=== PATIENT | female | born 1975 | race Caucasian/White ===

== ENCOUNTER 2016-11-27 21:34 | Emergency (ER) | payer OTHER ==
[~2016-11-27] VITALS: Ht 160 cm; Wt 68.0 kg
[2016-11-27 21:52] VITALS: BP 104/70
[2016-11-27] MEDS ORDERED: AMOX500C PO (22:30)
--- NOTE | 2016-11-27 22:31 | PHYS DOC ---
Past Medical History Past Medical History: Unknown Past Surgical History: Other Additional Past Surgical Histo: UNKNOWN Alcohol Use: Heavy Drug Use: Methamphetamine Adult General Chief Complaint Chief Complaint: DENTAL PROBLEM HPI HPI Patient is a 41 year old female presents to the emergency department with a history of upper dental pain along the gum line for the last 2 days. Patient states she has called a dentist and has an appointment for Saturday. Patient states she has been taking aleve with minimal relief. Patient states she has pain on the right side of her jaw and neck area. Denies fever, chill, nausea and vomiting. Review of Systems Review of Systems Constitutional: Denies fever or chills [] Eyes: Denies change in visual acuity, redness, or eye pain [] HENT: Denies nasal congestion or sore throat. C/o dental pain Respiratory: Denies cough or shortness of breath [] Cardiovascular: No additional information not addressed in HPI [] GI: Denies abdominal pain, nausea, vomiting, bloody stools or diarrhea [] : Denies dysuria or hematuria [] Musculoskeletal: Denies back pain or joint pain [] Integument: Denies rash or skin lesions [] Neurologic: Denies headache, focal weakness or sensory changes [] Endocrine: Denies polyuria or polydipsia [] Allergies Allergies Allergies Coded Allergies Type Severity Reaction Last Updated Verified No Known Drug Allergies 03/09/16 No Physical Exam Physical Exam Constitutional: Well developed, well nourished, no acute distress, non-toxic appearance. [] HENT: Normocephalic, atraumatic, bilateral external ears normal, oropharynx moist, no oral exudates, nose normal. Bilateral TM normal, Throat with redness noted no erythema no exudate noted no uvla deviation noted. Patient with redness and inflammation noted to the #1 area patient was noted to have teeth on the lower right jaw that appears flat. No drainage or discharge noted. Eyes: PERRLA, EOMI, conjunctiva normal, no discharge. [] Neck: Normal range of motion, no tenderness, supple, no stridor. Cardiovascular:Heart rate regular rhythm, no murmur [] Lungs & Thorax: Bilateral breath sounds clear to auscultation [] Skin: Warm, dry, no erythema, no rash. [] Back: No tenderness Extremities: No tenderness, no cyanosis, no clubbing, ROM intact, no edema. [] Neurologic: Alert and oriented X 3, normal motor function, normal sensory function, no focal deficits noted. [] Psychologic: Affect normal, judgement normal, mood normal. [] EKG EKG [] Radiology/Procedures Radiology/Procedures [] Course & Med Decision Making Course & Med Decision Making Pertinent Labs and Imaging studies reviewed. (See chart for details) She was recommended to use warm salt water mouth rinses 4 to she'll be provided with amoxicillin 4 times a day for the next 10 days. Recommended Aleve for pain and discomfort. Recommended her to keep her appointment which she has on Saturday. Patient agrees with discharge instructions treatment regimens and follow-up recommendations. Signs and symptoms to return back to emergency department as been provided. [] Dragon Disclaimer Dragon Disclaimer This electronic medical record was generated, in whole or in part, using a voice recognition dictation system. Departure Departure Impression: Primary Impression: Dental abscess Disposition: HOME, SELF-CARE Condition: STABLE Referrals: NO PCP (PCP) Patient Instructions: Dental Abscess Additional Instructions: Continue to use Aleve for pain and discomfort Medication as prescribed Warm salt water mouth rinses 4 times a day and prior to bedtime Keep your appointment with the dentist in which you state you have an appointment on Saturday Return to emergency department as needed for signs and symptoms that become worse. Scripts Amoxicillin (AMOXICILLIN) 500 Mg Capsule 1 CAP PO QID, #40 CAP Prov: ELMA RODRIGUEZ APRN 11/27/16 ELMA RODRIGUEZ APRN Nov 27, 2016 22:31
== END 2016-11-27 22:50 | disposition home or self-care (01) ==
LOC: ER 21:34
DX: K04.7 Periapical abscess without sinus (principal); F15.10 Other stimulant abuse, uncomplicated; F10.10 Alcohol abuse, uncomplicated
CPT/HCPCS: 99283

== ENCOUNTER 2018-08-30 17:35 | Emergency (ER) | payer OTHER ==
[~2018-08-30] VITALS: Ht 152.4 cm; Wt 61.2 kg
[~2018-08-30 17:35] MED LIST: AMOX500C PO
[2018-08-30 18:50] VITALS: BP 130/77
[2018-08-30] MEDS ORDERED: HYDR-3164 PO (19:26)
[2018-08-30] MEDS ORDERED: PENI500T PO (19:26)
--- NOTE | 2018-08-30 19:26 | PHYS DOC ---
Past Medical History Past Medical History: No Pertinent History (KIARA ADAMS APRN) Past Surgical History: No Surgical History Additional Past Surgical Histo: UNKNOWN (KIARA ADAMS APRN) Alcohol Use: Occasionally Drug Use: None (KIARA ADAMS APRN) Adult General Chief Complaint Chief Complaint: DENTAL PROBLEM HPI HPI 33-year-old female presents to ER with complaints of dental pain and swelling with upper lip swelling. She reports she woke up this morning and her upper lip was swelling with increased pain. She reports she has poor teeth and has freq. abscess and caries. She reports front teeth are Veneers and she has freq. infection. She denies fever, N/V, or difficulty swallowing. She reports she has increased pain with eating solid foods d/t pain. Pt is daily smoker. (KIARA ADAMS APRN) Review of Systems Review of Systems Constitutional: Denies fever or chills [] Eyes: Denies change in visual acuity, redness, or eye pain [] HENT: Reports front gum/dental pain and swelling w/abscess above front rt tooth Respiratory: Denies cough or shortness of breath [] Cardiovascular: No additional information not addressed in HPI [] GI: Denies nausea, vomiting Musculoskeletal: Denies neck pain/stiffness Integument: Denies rash or skin lesions [] Neurologic: Denies headache, focal weakness or sensory changes. Denies dizziness All other systems were reviewed and found to be within normal limits, except as documented in this note. (KIARA ADAMS APRN) Current Medications Current Medications Current Medications Medications (Trade) Dose Ordered Sig/Tha Start Time Stop Time Status Last Admin Dose Admin Acetaminophen/ Hydrocodone Bitart (Lortab 5/325) 1 tab 1X ONCE 08/30/18 19:30 08/30/18 19:31 DC 08/30/18 20:00 1 TAB (SACHIN CM MD) Allergies Allergies Allergies Coded Allergies Type Severity Reaction Last Updated Verified No Known Drug Allergies 03/09/16 No (SACHIN CM MD) Physical Exam Physical Exam Constitutional: Well developed, well nourished, moderate distress- anxious/tearful, non-toxic appearance. [] HENT: Normocephalic, atraumatic, bilateral ears normal, mucous membranes pink/dry- cigarette odor on breath, no pharyngeal swelling/erythema- uvula midline. Multiple caries on exam upper/lower. Veneers to upper front teeth- with obvious caries behind the veneers. Erythema and swelling to upper gumline along front teeth- abscess above rt front tooth. Swelling upper lip. Pt is able to open/close mouth. Upper palate soft- no palp. crepitus/abscess. Nose normal- no swelling bilat. patent nares. Eyes: Pupils equal- no orbital swelling, conjunctiva normal, no discharge. [] Neck: Normal range of motion, no tenderness, supple, no stridor/gross adenopathy Cardiovascular: Heart rate regular rhythm, no murmur [] Lungs & Thorax: Bilateral breath sounds clear to auscultation- resp. equal/nonlabored Skin: Warm, dry, no erythema, no rash. [] Extremities: ROM intact, no edema. [] Neurologic: Alert and oriented X 3, normal motor function, normal sensory function, no focal deficits noted. [] Psychologic: Affect normal, judgement normal, mood anxious- cooperative during exam (KIARA ADAMS APRN) EKG EKG [] (KIARA ADAMS APRN) Radiology/Procedures Radiology/Procedures [] (KIARA ADAMS APRN) Course & Med Decision Making Course & Med Decision Making Pt was evaluated in the ER for c/o dental pain/swelling- she had an abscess above her rt front tooth and had upper lip swelling. Pt was provided with pain med while in the ER. 18g needle was used to drain front upper abscess- with moderate amt of purulent drainage out. Pt tolerated draining of abscess well and reported improved pain following. She reported pain improved and was less tearful/anxious. Discussed plans for home d/c with Rxs for antibiotic and pain med. Pt advised on use of ibuprofen and salt swishes at home- will provide Rx for Peridex. Smoking cessation was discussed. Pt encouraged to increase fluid intake daily. Pt advised on need for dentist appt DENISE d/t multiple caries and current infection- will provide dental resource sheet with d/c paperwork. Education provided on s&s to return to ER for and d/c instructions were discussed. (KIARA ADAMS APRN) Course & Med Decision Making Staff Physician Addendum: I was working in the ER during the course of this patient's visit. I was available for consultation as needed, but I was not directly involved in the care of this patient. (SACHIN CM MD) Dragon Disclaimer Dragon Disclaimer This electronic medical record was generated, in whole or in part, using a voice recognition dictation system. (KIARA ADAMS APRN) Departure Departure Impression: Primary Impression: Dental abscess Additional Impression: Dental caries Disposition: HOME, SELF-CARE Condition: STABLE Referrals: NO PCP (PCP) Patient Instructions: Dental Abscess, Dental Caries Additional Instructions: You should call as soon as possible to schedule appointment with a dentist for further care. You can continue [id number] Tylenol and/or ibuprofen as directed on container as needed for pain. If taking Jbphh prescription avoid additional Tylenol. Avoid smoking. Drink plenty of water. Scripts Chlorhexidine Gluconate (PERIDEX) 15 Ml Mouthwash 15-30 ML PO TID for 10 Days, ML 0 Refills Prov: KIARA ADAMS APRN 08/30/18 Hydrocodone/Apap 5-325 (NORCO 5-325 TABLET) 1 Each Tablet 1 TAB PO PRN Q6HRS PRN for PAIN, #6 TAB 0 Refills Avoid driving or drinking alcohol when taking this medication Prov: KIARA ADAMS APRN 08/30/18 Penicillin V Potassium (PENICILLIN V POTASSIUM) 500 Mg Tablet 1 TAB PO TID, #30 TAB 0 Refills Prov: KIARA ADAMS APRN 08/30/18 Problem Qualifiers KIARA ADAMS APRN Aug 30, 2018 19:26 SACHIN CM MD October 20, 2018 01:22
[2018-08-30] MEDS ORDERED: HYDROcodone/APAP 5/325MG 1 TAB TABLET PO ONE (19:30)
[2018-08-30] MEDS ORDERED: CHLO15MO2 PO (19:43)
== END 2018-08-30 20:11 | disposition home or self-care (01) ==
LOC: ER 17:35
DX: K04.7 Periapical abscess without sinus (principal); K02.9 Dental caries, unspecified
CPT/HCPCS: 99283

== ENCOUNTER 2019-08-10 18:06 | Emergency (ER) | payer MEDICAID, OTHER ==
[~2019-08-10] VITALS: Ht 152.4 cm; Wt 58.1 kg
[~2019-08-10 18:06] MED LIST changes: +CHLO15MO2 PO; +HYDR-3164 PO; +PENI500T PO
[2019-08-10 19:05] VITALS: BP 120/63
[2019-08-10] MEDS: MAG HYDROX/ALUMINUM HYD/SIMETH 30 ML ORAL.SUSP PO STA (19:52)
[2019-08-10] MEDS ORDERED: AMOX1TAB61 PO (19:56)
--- NOTE | 2019-08-10 19:57 | PHYS DOC ---
Past Medical History Past Medical History: No Pertinent History Past Surgical History: No Surgical History Additional Past Surgical Histo: UNKNOWN Smoking Status: Current Every Day Smoker Alcohol Use: Occasionally Drug Use: None Adult General Chief Complaint Chief Complaint: DENTAL PROBLEM HPI HPI Patient is a 44 year old female who presents with left sided facial swelling that started this morning. The patient also is having severe pain. The patient has multiple broken teeth in her mouth and states that she's been needing to go to the dentist. States the teeth been broken for months. Has fever or any other complaints. Complete ROS were reviewed and found to be within normal limits, except as documented in the HPI Allergies Allergies Allergies Coded Allergies Type Severity Reaction Last Updated Verified No Known Drug Allergies 03/09/16 No Physical Exam Physical Exam Constitutional: Well developed, well nourished, no acute distress, non-toxic appearance. [] HENT: Normocephalic, atraumatic, bilateral external ears normal, oropharynx moist, no oral exudates, broken teeth done to roots at 13, 16, missing 14, 15, 20, 19, and 17. Eyes: PERRLA, EOMI, conjunctiva normal, no discharge. [] Neurologic: Alert and oriented X 3, normal motor function, normal sensory function, no focal deficits noted. [] Psychologic: Affect normal, judgement normal, mood normal. [] Current Patient Data Vital Signs Vital Signs Date Time Temp Pulse Resp B/P (MAP) Pulse Ox O2 Delivery O2 Flow Rate FiO2 08/10/19 19:05 98.5 97 16 120/63 (82) 97 Room Air 98.5 EKG EKG [] Radiology/Procedures Radiology/Procedures [] Course & Med Decision Making Course & Med Decision Making Pertinent Labs and Imaging studies reviewed. (See chart for details) Patient appears to have a dental infection. Will give dental balls and Augmentin. Dragon Disclaimer Dragon Disclaimer This electronic medical record was generated, in whole or in part, using a voice recognition dictation system. Departure Departure Impression: Primary Impression: Dental caries Disposition: HOME, SELF-CARE Condition: STABLE Referrals: NO PCP (PCP) Patient Instructions: Carbamide Peroxide dental solution, Dental Caries Additional Instructions: Thank you for visiting [facility]. We appreciate you trusting us with your care. If any additional problems come up don't hesitate to return to visit us. Please follow up with your primary care provider so they can plan additional care if needed and know about the problem that you had. If symptoms worsen come back to the Emergency Department. Any concerning symptoms that start such as chest pain, shortness of air, weakness or numbness on one side of the body, running high fevers or any other concerning symptoms return to the ER. You have been prescribed an antibiotic today to help fight your infection. Please take all of the antibiotic as directed. If after 48 hours the infection is not improving, please return for more care. If the infection worsens, return to ER for additional care. Please follow-up with a dentist as soon as possible. Scripts Amoxicillin/Potassium Clav (AUGMENTIN 875-125 TABLET) 1 Each Tablet 1 TAB PO BID for 10 Days, #20 TAB 0 Refills Prov: LYNDA MOOER APRN 08/10/19 LYNDA MOORE APRN Aug 10, 2019 19:57
[2019-08-10] MEDS: LIDOCAINE 2% VISCOUS 15 ML SOLUTION. SWSW ONE (20:00)
== END 2019-08-10 20:00 | disposition home or self-care (01) ==
LOC: ER 18:06
DX: K02.9 Dental caries, unspecified (principal); F17.200 Nicotine dependence, unspecified, uncomplicated
CPT/HCPCS: 99283

== ENCOUNTER 2020-01-24 19:31 | Emergency (ER) | payer MEDICAID ==
[~2020-01-24] VITALS: Ht 152.4 cm; Wt 55.9 kg
[~2020-01-24 19:31] MED LIST changes: +AMOX1TAB61 PO
[2020-01-24 19:33] VITALS: BP 134/79
[2020-01-24] MEDS ORDERED: CLIN150C14 PO (21:17)
[2020-01-24] MEDS ORDERED: CHLO15MO2 SWSP (21:17)
[2020-01-24] MEDS ORDERED: HYDR-2761 PO (21:17)
[2020-01-24] MEDS ORDERED: NAPR-514 PO (21:17)
--- NOTE | 2020-01-24 21:18 | PHYS DOC ---
Past Medical History Past Medical History: No Pertinent History Past Surgical History: No Surgical History Additional Past Surgical Histo: UNKNOWN Smoking Status: Current Every Day Smoker Alcohol Use: Occasionally Drug Use: None General Adult EDM: Chief Complaint: DENTAL PROBLEM HPI: HPI: Patient is a 44 year old female who presents to the emergency department with complaints of right upper dental pain and gingival swelling for the past 3 days. She reports that she had right-sided facial swelling that began yesterday and was worse today. She denies any fever, cough, shortness of breath, ear pain, sore throat, nausea, vomiting, or gingival bleeding. She denies any headache, vision changes, nasal congestion, or runny nose. She currently rates the pain a 10 out of 10 on the pain scale, she reports the pain is worse with eating and palpation of the affected area. She denies any radiation of the pain. Review of Systems: Review of Systems: Constitutional: Denies fever or chills. [] Eyes: Denies change in visual acuity. [] HENT: Denies nasal congestion or sore throat; see HPI. [] Respiratory: Denies cough or shortness of breath. [] GI: Denies abdominal pain, nausea, vomiting Musculoskeletal: Denies body aches Integument: Denies rash. [] Neurologic: Denies headache Lymphatic: Denies swollen glands. [] Psychiatric: Denies depression or anxiety. [] Heart Score: Risk Factors: Risk Factors: DM, Current or recent (<one month) smoker, HTN, HLP, family history of CAD, obesity. Risk Scores: Score 0 - 3: 2.5% MACE over next 6 weeks - Discharge Home Score 4 - 6: 20.3% MACE over next 6 weeks - Admit for Clinical Observation Score 7 - 10: 72.7% MACE over next 6 weeks - Early Invasive Strategies Allergies: Allergies: Allergies Coded Allergies Type Severity Reaction Last Updated Verified No Known Drug Allergies 03/09/16 No Physical Exam: PE: Constitutional: Well developed, well nourished, no acute distress, non-toxic appearance. [] HENT: Normocephalic, atraumatic, bilateral external ears normal, bilateral TMs normal, nose normal; diffuse dental decay with multiple dental caries and broken teeth in the maxillary palate, with erythema and edema of the right maxillary gingiva, no visible or palpable dental abscess [] Eyes: PERRLA, EOMI, conjunctiva normal, no discharge. [] Neck: Normal range of motion, nontender, supple no stridor. [] Cardiovascular:Heart rate regular rhythm Lungs & Thorax: Respirations even and unlabored, no retractions, no respiratory distress Skin: Warm, no erythema, dry; localized facial edema of the right maxillary area, no warmth Extremities: No cyanosis, ROM intact, no edema. [] Neurologic: Alert and oriented X 3, no focal deficits noted. [] Psychologic: Affect normal, judgement normal, mood normal. [] Current Patient Data: Vital Signs: Vital Signs Date Time Temp Pulse Resp B/P (MAP) Pulse Ox O2 Delivery O2 Flow Rate FiO2 01/24/20 19:33 98.4 97 16 134/79 (97) 95 Room Air 98.4 EKG: EKG: [] Radiology/Procedures: Radiology/Procedures: [] Course & Med Decision Making: Course & Med Decision Making Pertinent Labs and Imaging studies reviewed. (See chart for details) [] Dragon Disclaimer: Dragon Disclaimer: This electronic medical record was generated, in whole or in part, using a voice recognition dictation system. Departure Departure Impression: Primary Impression: Infected dental caries Additional Impressions: Dentalgia Acute gingivitis, non-plaque induced Disposition: 01 HOME, SELF-CARE Condition: STABLE Referrals: NO PCP (PCP) Patient Instructions: Dental Caries, Dental Pain, [id number], Gingivitis, E asy-to-Read Additional Instructions: Fill prescription(s) and use as directed. Follow up with dentist using the referral list provided. Return to the ER if symptoms worsen. Scripts Hydrocodone Bit/Acetaminophen (HYDROCODONE-APAP 5-325 ) 1 Tab Tablet 0.5-1 TAB PO PRN Q6HRS PRN for SEVERE PAIN 7-10, #4 TAB 0 Refills Prov: ELIZABETH HUGHES APRN 01/24/20 Chlorhexidine Gluconate (PERIDEX) 15 Ml Mouthwash 15 ML SWSP BID for 7 Days, #1 BOT 0 Refills [place] teeth before using to prevent staining. Swish for approximately 30 seconds before spitting. Prov: ELIZABETH HUGHES APRN 01/24/20 Naproxen (NAPROXEN) 500 Mg Tablet 1 TAB PO BID PRN for PAIN for 10 Days, #20 TAB 0 Refills Prov: ELIZABETH HUGHES APRN 01/24/20 Clindamycin Hcl (CLINDAMYCIN HCL) 150 Mg Capsule 450 MG PO TID for 7 Days, #63 CAP 0 Refills Prov: ELIZABETH HUGHES APRN 01/24/20 Justicifation of Admission Dx: Justifications for Admission: Justification of Admission Dx: N/A ELIZABETH HUGHES APRN Jan 24, 2020 21:18
[2020-01-24] MEDS ORDERED: HYDROcodone/APAP 5/325MG 1 TAB TABLET PO ONE (21:45)
[2020-01-24] MEDS ORDERED: CLINDAMYCIN HCL 150 MG CAPSULE. PO ONE (21:45)
== END 2020-01-24 21:30 | disposition home or self-care (01) ==
LOC: ER 19:31
DX: K02.9 Dental caries, unspecified (principal); K05.01 Acute gingivitis, non-plaque induced; R60.0 Localized edema; F17.200 Nicotine dependence, unspecified, uncomplicated
CPT/HCPCS: 99283

== ENCOUNTER 2020-09-11 16:16 | Emergency (ER) | payer MEDICAID ==
[~2020-09-11] VITALS: Ht 152.4 cm; Wt 56.8 kg
[~2020-09-11 16:16] MED LIST changes: +CHLO15MO2 SWSP; +CLIN150C15 PO; +HYDR-2761 PO; +NAPR-514 PO
[2020-09-11] MEDS ORDERED: NAPR-514 PO (16:52)
[2020-09-11] MEDS ORDERED: AMOX875T PO (16:52)
[2020-09-11] MEDS ORDERED: HYDR-2761 PO (16:52)
--- NOTE | 2020-09-11 16:52 | PHYS DOC ---
Past Medical History Past Medical History: No Pertinent History (DUARTE MARTINEZ AIR ANTISUBMARINE OFFICER) Past Surgical History: No Surgical History Additional Past Surgical Histo: UNKNOWN (DUARTE MARTINEZ AIR ANTISUBMARINE OFFICER) Smoking Status: Current Every Day Smoker Alcohol Use: Occasionally Drug Use: None (DUARTE MARTINEZ APRN) General Adult EDM: Chief Complaint: DENTAL PROBLEM HPI: HPI: Patient is a 45 year old female who presents the ED today complaining of moderate pain on the right upper gum that began yesterday. Patient states this morning she woke up and she had swelling on her right upper cheek. Patient denies any fever or trismus. She states she will try and find a dentist and follow-up. She states she is in the process of trying to find dentures but with no medical insurance it is difficult (DUARTE MARTINEZ APRN) Review of Systems: Review of Systems: Constitutional: Denies fever or chills. [] ENT: Reports dental pain and swelling Musculoskeletal: Denies back pain or joint pain. [] Integument: Denies rash. [] Neurologic: Denies headache, focal weakness or sensory changes. [] Psychiatric: Denies depression or anxiety. [] (DUARTE MARTINEZ AIR ANTISUBMARINE OFFICER) Heart Score: C/O Chest Pain: N/A Risk Factors: Risk Factors: DM, Current or recent (<one month) smoker, HTN, HLP, family history of CAD, obesity. Risk Scores: Score 0 - 3: 2.5% MACE over next 6 weeks - Discharge Home Score 4 - 6: 20.3% MACE over next 6 weeks - Admit for Clinical Observation Score 7 - 10: 72.7% MACE over next 6 weeks - Early Invasive Strategies (DUARTE MARTINEZ AIR ANTISUBMARINE OFFICER) Allergies: Allergies: Allergies Coded Allergies Type Severity Reaction Last Updated Verified No Known Drug Allergies 03/09/16 No (DUARTE MARTINEZ APRN) Physical Exam: PE: Constitutional: Well developed, well nourished, no acute distress, non-toxic appearance. [] HENT: Normocephalic, atraumatic, bilateral external ears normal, oropharynx moist, no oral exudates, nose normal. [] Right upper cheek with small amount of swelling. Patient missing all the molars and premolars. The gum around the molars is swollen and erythematous. She has some sort of fake dentures on the upper front gums Skin: Warm, dry, no erythema, no rash. [] Back: No tenderness, no CVA tenderness. [] Extremities: No tenderness, no cyanosis, no clubbing, ROM intact, no edema. [] Neurologic: Alert and oriented X 3, normal motor function, normal sensory function, no focal deficits noted. [] Psychologic: Affect normal, judgement normal, mood normal. [] (DUARTE MARTINEZ APRN) EKG: EKG: [] (DUARTE MARTINEZ APRN) Radiology/Procedures: Radiology/Procedures: [] (DUARTE MARTINEZ APRN) Course & Med Decision Making: Course & Med Decision Making Pertinent Labs and Imaging studies reviewed. (See chart for details) This is a 45-year-old female patient with a dental abscess. I highly recomme nded this patient follow-up with a dentist. She was given a couple clinic list for follow-up. Discharged on amoxicillin and pain medicine. (DUARTE MARTINEZ APRN) Dragon Disclaimer: Dragon Disclaimer: This electronic medical record was generated, in whole or in part, using a voice recognition dictation system. (DUARTE MARTINEZ APRN) Departure Departure Impression: Primary Impression: Dental abscess Disposition: 01 DC HOME SELF CARE/HOMELESS Condition: STABLE Referrals: NO PCP (PCP) Follow-up with a dentist as soon as possible Patient Instructions: Dental Abscess Additional Instructions: You were evaluated in the emergency room for dental abscess. Please ensure you follow-up with a dentist from the list provided. Complete your antibiotics. Scripts Naproxen (NAPROXEN) 500 Mg Tablet 1 TAB PO BID for pain, #20 TAB 0 Refills Prov: DUARTE MARTINEZ APRN 09/11/20 Hydrocodone Bit/Acetaminophen (HYDROCODONE-APAP 5-325 ) 1 Tab Tablet 1 TAB PO PRN Q6HRS PRN for PAIN, #8 TAB 0 Refills Prov: DUARTE MARTINEZ APRN 09/11/20 Amoxicillin (AMOXICILLIN) 875 Mg Tablet 1 TAB PO BID, #20 TAB Prov: DUARTE MARTINEZ APRN 09/11/20 Attending Signature Attending Signature I have reviewed the PA/SCRUBBER OPERATOR's note and plan of care. I was available for consultation as needed during the patient's visit in the emergency department. I agree with the clinical impression, plan, and disposition. (LYNDA COSTA DO) DUARTE MARTINEZ AIR ANTISUBMARINE OFFICER Sep 11, 2020 16:52 LYNDA COSTA DO Sep 12, 2020 15:29
[2020-09-11 17:01] VITALS: BP 124/73
== END 2020-09-11 17:55 | disposition home or self-care (01) ==
LOC: ER 16:16
DX: K04.7 Periapical abscess without sinus (principal); K08.89 Other specified disorders of teeth and supporting structures; R60.0 Localized edema; F17.200 Nicotine dependence, unspecified, uncomplicated
CPT/HCPCS: 99283